=== PATIENT | female | born 1950 | race African-American/Black ===

== ENCOUNTER → 2025-01-12 | Outpatient (CLI) | payer MEDICARE ==
--- NOTE | 2025-01-12 13:26 | HMCIMG ---
Exam Type: FOOT COMP 3+VWS LT Clinical Information: LT foot pain Comparison: None Findings: The examination is unremarkable except for calcaneal spurs. No fractures or dislocations are seen. No radiopaque foreign bodies are noted. Soft tissues are preserved. IMPRESSION: Calcaneal spurs.'S
--- NOTE | 2025-01-12 13:26 | HMCIMG ---
Wrist 3 views- AP, lateral, oblique right History: Fall injury Comparison: none Findings: No fractures or dislocations are seen. There is narrowing of the radiocarpal joint space with subchondral sclerosis consistent with degenerative joint disease. There is adequate carpal alignment on the lateral view. There are no joint effusions. There are no blastic or lytic lesions. The soft tissues are preserved. 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
--- NOTE | 2025-01-12 13:46 | HMCIMG ---
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 As a result, there are degenerative changes of the radiocarpal space.
== END | disposition home or self-care (01) ==
LOC: RAH 11:31
PROVIDERS: ATTEND Family Medicine
DX: M77.32 Calcaneal spur, left foot (principal); M79.632 Pain in left forearm; M25.532 Pain in left wrist; M79.672 Pain in left foot; M19.032 Primary osteoarthritis, left wrist
CPT/HCPCS: 73090; 73100; 73630